=== PATIENT | female | born 2005 | race African-American/Black ===

== ENCOUNTER 2024-01-28 00:14 | Emergency (ER) | payer MEDICAID ==
[~2024-01-28] VITALS: Ht 162.6 cm; Wt 63.5 kg
[2024-01-28] MEDS: IBUPROFEN 600 MG TABLET PO ONE (01:32)
[2024-01-28] MEDS ORDERED: IBUPROFEN 600 MG TABLET ONE (01:32)
[2024-01-28] MEDS ORDERED: IBUP-1955 PO (02:17)
[2024-01-28 02:24] VITALS: BP 125/82; TEMP 98; O2SAT 99
== END 2024-01-28 02:25 | disposition home or self-care (01) ==
LOC: ER 00:20
DX: S93.491A Sprain of other ligament of right ankle, initial encounter (principal); S00.11XA Contusion of right eyelid and periocular area, initial encounter; M25.571 Pain in right ankle and joints of right foot; F32.A Depression, unspecified; F17.200 Nicotine dependence, unspecified, uncomplicated; Z79.899 Other long term (current) drug therapy; Z59.00 Homelessness unspecified; W18.49XA Other slipping, tripping and stumbling without falling, initial encounter; Y93.89 Activity, other specified; Y92.89 Other specified places as the place of occurrence of the external cause; Y99.8 Other external cause status
CPT/HCPCS: 73600; A4606; A4663